=== PATIENT | male | born 1980 | race Caucasian/White ===

== ENCOUNTER 2025-03-22 17:50 | Emergency (ER) | payer OTHER, BC ==
[2025-03-22] MEDS ORDERED: Bacitracin 1 PK ONE (18:58)
== END 2025-03-22 19:15 | disposition home or self-care (01) ==
LOC: MADERS 17:50
DX: S00.83XA Contusion of other part of head, initial encounter (principal); S40.012A Contusion of left shoulder, initial encounter; S80.812A Abrasion, left lower leg, initial encounter; V89.2XXA Person injured in unspecified motor-vehicle accident, traffic, initial encounter
CPT/HCPCS: 70450